=== PATIENT | male | born 1985 | race Caucasian/White ===

== ENCOUNTER 2018-10-02 08:49 | Outpatient (CLI) | payer OTHER ==
[2018-10-02] MEDS ORDERED: IRBESARTAN150 MG PO (12:59)
== END 2018-10-02 09:05 | disposition home or self-care (01) ==
LOC: EDBD 08:49 → LAB 08:49
DX: D64.89 Other specified anemias (principal); D68.8 Other specified coagulation defects; I11.9 Hypertensive heart disease without heart failure; Z01.811 Encounter for preprocedural respiratory examination

== ENCOUNTER 2018-10-05 16:00 | Day surgery (SDC) | payer OTHER ==
[~2018-10-05 16:00] MED LIST: IRBESARTAN150 MG PO
[2018-10-05] MEDS ORDERED: XARELTO10 MG PO (20:31)
[2018-10-05] MEDS ORDERED: DUI500 PO (20:31)
[2018-10-05] MEDS ORDERED: OXYC1TAB9 PO (20:31)
== END 2018-10-05 22:50 | disposition home or self-care (01) ==
LOC: CIR.AMB 16:00
DX: S82.841A Displaced bimalleolar fracture of right lower leg, initial encounter for closed fracture (principal)